=== PATIENT | female | born 1965 | race Caucasian/White ===

== ENCOUNTER 2023-03-11 16:46 | Outpatient (CLI) | payer MEDICARE, MEDICAID | END 2023-03-11 23:59 | disposition critical access hospital (66) | LOC: EMS 16:46 | DX: R41.82 Altered mental status, unspecified (principal); R07.9 Chest pain, unspecified; R53.1 Weakness; E11.65 Type 2 diabetes mellitus with hyperglycemia; I10 Essential (primary) hypertension | CPT/HCPCS: A0425; A0427 ==

== ENCOUNTER 2023-03-11 17:00 | Emergency (ER) | payer MEDICARE, MEDICAID ==
[2023-03-11 17:36] LABS: BASOPHILS # (AUTO) 0.1 10^3/uL (0.0-0.1); BASOPHILS % (AUTO) 0.6 %; EOSINOPHILS # (AUTO) 0.2 10^3/uL (0.0-0.7); EOSINOPHILS % (AUTO) 2.3 %; HCT - HEMATOCRIT 40.4 % (37.0-47.0); HGB - HEMOGLOBIN 13.7 g/dL (12.0-16.0); LYMPHOCYTES # (AUTO) 2.1 10^3/uL (1.5-3.5); LYMPHOCYTES % (AUTO) 27.5 %; MEAN CORPUSCULAR HEMOGLOBIN 29.3 pg (27.0-31.0); MEAN CORPUSCULAR HGB CONC 33.9 g/dL (32.0-36.0); MEAN CORPUSCULAR VOLUME 86.5 fL (81.0-99.0); MEAN PLATELET VOLUME 10.5 fL (7.9-10.8); MONOCYTES # (AUTO) 0.5 10^3/uL (0.0-1.0); MONOCYTES % (AUTO) 6.5 %; NEUTROPHILS # (AUTO) 4.8 10^3/uL (1.5-6.6); NEUTROPHILS % (AUTO) 62.8 %; PLT - PLATELET COUNT 255 10^3/uL (130-450); RED BLOOD COUNT 4.67 10^6/uL (4.20-5.40); RED CELL DISTRIBUTION WIDTH 12.3 % (12.0-15.0); WHITE BLOOD COUNT 7.7 x10^3/uL (4.8-10.8)
[2023-03-11 17:56] LABS: ALBUMIN 3.6 g/dL (3.2-5.5); ALBUMIN/GLOBULIN RATIO 1.4 (1.0-2.2); BILIRUBIN,TOTAL 0.4 mg/dL (0.2-1.0); CALCIUM 8.9 mg/dL (8.5-10.3); CREATININE 0.7 mg/dL (0.6-1.3); POTASSIUM 3.8 mmol/L (3.5-4.5); TOTAL PROTEIN 6.2 g/dL (6.4-8.9)
[2023-03-11 17:57] LABS: VBG BASE EXCESS 1.2 mmol/L (-2 - +2); VBG HCO3 26.3 mmol/L (23-28); VBG PCO2 43.8 mmHg (41-51); VBG PH 7.397 (7.31-7.41); VBG PO2 30.4 mmHg (25-47); VBG TOTAL CO2 27.7 mmol/L (24-29)
[2023-03-11] MEDS ORDERED: SODIUM CHLORIDE 0.9% 1,000 ML IV STA (17:58)
--- NOTE | 2023-03-11 17:59 | ED Physician Documentation ---
History of Present Illness - Stated complaint Stated Complaint: AMS/CP - Chief complaint Chief Complaint: Cardiac - History obtained from History obtained from: Patient, EMS - History of Present Illness Timing: Today, Chronic Pain level max: 4 Pain level now: 0 - Additonal information Additional information: 57-year-old female presents to the emergency department stating she is not sure what happened today she remembers taking her garbage can outside because it is trash day tomorrow she felt lightheaded and dizzy like she "was not going to make it" and sounds like she may have had a syncopal event. She is unsure if she lost consciousness or not. EMS states she was confused initially, but that resolved on route. No history of seizure activity. She does use marijuana several times daily. She states that she is a newly diagnosed diabetic but "they are trying to figure out how to treat me". She also states that she is had intermittent chest pain for the past several weeks. Occasionally there is a heaviness in her chest, sometimes it is a stabbing. It moves around to different areas. Does not appear to be related to exertion, inspiration, movement. No calf swelling or tenderness. She does smoke cigarettes as well. She states she does not drink. Review of Systems Constitutional: denies: Fever, Chills Respiratory: denies: Cough GI: denies: Nausea, Vomiting, Diarrhea : denies: Dysuria Skin: denies: Rash Musculoskeletal: reports: Back pain (States that she has had intermittent left- sided back pain for several months. She is working with her doctor about this.). denies: Neck pain Neurologic: denies: Focal weakness, Numbness, Headache PD PAST MEDICAL HISTORY - Past Medical History Past Medical History: Yes Cardiovascular: Hypertension, Coronary artery disease Endocrine/Autoimmune: Type 2 diabetes - Past Surgical History Cardiovascular: Coronary stent (She believes her last cardiac stent was 2018 in [facility]) - Present Medications Home Medications: Ambulatory Orders Medication Instructions Recorded Confirmed Aspirin [[place] Aspirin] 81 mg PO DAILY 03/11/23 03/11/23 - Allergies Allergies/Adverse Reactions: Allergies Allergy/AdvReac Type Severity Reaction Status Date / Time glipizide Allergy Unknown Verified 03/11/23 17:11 morphine Allergy Unknown Verified 03/11/23 17:11 metformin [From Glucophage] AdvReac Unknown Verified 03/11/23 17:11 - Living Situation Living Arrangement: reports: At home - Social History Does the pt smoke?: Yes Does the pt drink ETOH?: Yes ETOH Use: Other (States occasional alcohol use) Does the pt have substance abuse?: Yes Substance Use and Type: Marijuana PD ED PE NORMAL - Vitals Vital signs reviewed: Yes - General General: Alert and oriented X 3, No acute distress - HEENT HEENT: Atraumatic, PERRL, EOMI, Moist mucous membranes, Pharynx benign - Neck Neck: Supple, no meningeal sign, No bony TTP - Cardiac Cardiac: RRR, Strong equal pulses - Respiratory Respiratory: No respiratory distress, Clear bilaterally - Abdomen Abdomen: Normal bowel sounds, Soft, Non tender, Non distended - Back Back: No spinal TTP - Derm Derm: Warm and dry - Extremities Extremities: No edema, No calf tenderness / cord - Neuro Neuro: Alert and oriented X 3, 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, No motor deficit, No sensory deficit, Normal speech Eye Opening: Spontaneous Motor: Obeys Commands Verbal: Oriented GCS Score: 15 - Psych Psych: Normal mood, Normal affect Results - Vitals Vitals: Vital Signs - 24 hr 03/11/23 03/11/23 03/11/23 17:01 19:20 21:11 Temperature 36.9 C Heart Rate 84 73 82 Respiratory 12 16 16 Rate Blood Pressure 172/80 H 136/76 H 154/83 H O2 Saturation 97 97 99 03/11/23 23:44 Temperature Heart Rate 82 Respiratory 16 Rate Blood Pressure 166/91 H O2 Saturation 100 Oxygen O2 Source Room air - EKG (time done) 1722 EKG releavant findings:: EKG personally interpreted by author of this note. Relevant findings are: Rate: Rate (enter#) (74) Rhythm: NSR [place]: Normal Intervals: Normal WI QRS: Normal Ischemia: Normal ST segments - Labs Labs: Laboratory Tests 03/11/23 03/11/23 03/11/23 17:32 17:32 17:32 WBC 7.7 RBC 4.67 Hgb 13.7 Hct 40.4 MCV 86.5 MCH 29.3 MCHC 33.9 RDW 12.3 Plt Count 255 MPV 10.5 Neut # (Auto) 4.8 Lymph # (Auto) 2.1 [place] # (Auto) 0.5 Eos # (Auto) 0.2 Baso # (Auto) 0.1 Absolute Nucleated RBC 0.00 Nucleated RBC % 0.0 VBG pH VBG pCO2 VBG pO2 VBG HCO3 VBG Total CO2 VBG O2 Saturation VBG Base Excess Sodium 135 Potassium 3.8 Chloride 105 Carbon Dioxide 26 Anion Gap 4.0 L BUN 10 Creatinine 0.7 Estimated GFR (MDRD) 87 L Glucose 407 H POC Whole Bld Glucose Calcium 8.9 Total Bilirubin 0.4 AST 14 ALT 9 L Alkaline Phosphatase 106 Troponin I High Sens 15.8 H* Total Protein 6.2 L Albumin 3.6 Globulin 2.6 Albumin/Globulin Ratio 1.4 Lipase 22 Serum Ketones SARS-CoV-2 (PCR) 03/11/23 03/11/23 03/11/23 17:52 17:52 20:01 WBC RBC Hgb Hct MCV MCH MCHC RDW Plt Count MPV Neut # (Auto) Lymph # (Auto) [place] # (Auto) Eos # (Auto) Baso # (Auto) Absolute Nucleated RBC Nucleated RBC % VBG pH 7.397 VBG pCO2 43.8 VBG pO2 30.4 VBG HCO3 26.3 VBG Total CO2 27.7 VBG O2 Saturation 71.0 VBG Base Excess 1.2 Sodium Potassium Chloride Carbon Dioxide Anion Gap BUN Creatinine Estimated GFR (MDRD) Glucose POC Whole Bld Glucose 292 H Calcium Total Bilirubin AST ALT Alkaline Phosphatase Troponin I High Sens Total Protein Albumin Globulin Albumin/Globulin Ratio Lipase Serum Ketones NEGATIVE SARS-CoV-2 (PCR) 03/11/23 03/11/23 20:35 21:38 WBC RBC Hgb Hct MCV MCH MCHC RDW Plt Count MPV Neut # (Auto) Lymph # (Auto) [place] # (Auto) Eos # (Auto) Baso # (Auto) Absolute Nucleated RBC Nucleated RBC % VBG pH VBG pCO2 VBG pO2 VBG HCO3 VBG Total CO2 VBG O2 Saturation VBG Base Excess Sodium Potassium Chloride Carbon Dioxide Anion Gap BUN Creatinine Estimated GFR (MDRD) Glucose POC Whole Bld Glucose Calcium Total Bilirubin AST ALT Alkaline Phosphatase Troponin I High Sens 58.4 H* Total Protein Albumin Globulin Albumin/Globulin Ratio Lipase Serum Ketones SARS-CoV-2 (PCR) NOT DETECTED - Rads (name of study) Head CT Relevant Findings:: Final report received, See rad report cxr Relevant Findings:: Final report received, See rad report PD Medical Decision Making - ED course Complexity details: reviewed results, re-evaluated patient, considered differential, d/w patient ED course: 57-year-old female with what appears to be a likely syncopal event today at home. Had chest pain as well. No significant findings on head CT, chest x-ray or laboratory testing. Repeat troponin elevated significantly from the initial troponin given her longstanding cardiac history, diagnosis of diabetes that is poorly controlled, tobacco use, we will treat this as an NSTEMI. Given Lovenox here. There are no beds available at [facility] in [facility] in [place], [facility], [facility], [facility]. We will continue to look for a bed tonight, until then the patient will be kept in the emergency department and treated as an NSTEMI. Patient is signed out to the [facility] emergency department physician for further care. This document was made in part using voice recognition software. While efforts are made to proofread this document, sound alike and grammatical errors may occur. Patient is chest pain-free currently. No calf edema. No leg swelling. No recent travel. No history of blood clots. No pleuritic chest pain. Departure - Departure Disposition: 02 Transfer Acute Care Hosp Clinical Impression: NSTEMI (non-ST elevated myocardial infarction) Condition: Stable Forms: PCP List
--- NOTE | 2023-03-11 18:22 | XRAY Report ---
PROCEDURE: Chest 1 View X-Ray INDICATIONS: Chest pain TECHNIQUE: One view of the chest was acquired. COMPARISON: None. FINDINGS: Surgical changes and devices: None. Lungs and pleura: No pleural effusions or pneumothorax. Lungs are clear. Mediastinum: Mediastinal contours appear normal. Heart size is normal. Bones and chest wall: No suspicious bony lesions. Overlying soft tissues appear unremarkable. IMPRESSION: Portable chest within normal limits for age. Reviewed by: Dariel Soto MD on 03/11/2023 5:20 PM AKDT Approved by: Dariel Soto MD on 03/11/2023 5:20 PM AKDT Station ID: [id number]
--- NOTE | 2023-03-11 18:30 | CT Report ---
PROCEDURE: HEAD WO INDICATIONS: head injury, ALOC TECHNIQUE: Noncontrast 4.5 mm thick angled axial sections acquired from the foramen magnum to the vertex. For r adiation dose reduction, the following was used: automated exposure control, adjustment of mA and/or kV according to patient size. COMPARISON: None. FINDINGS: Image quality: Excellent. CSF spaces: Basal cisterns are patent. No extra-axial fluid collections. Ventricles are normal in size and shape. Brain: No midline shift. No intracranial masses or hemorrhage. Cintron-white matter interface is norm al. Skull and face: Calvarium and visualized facial bones are intact, without suspicious lesions. Sinuses: There are mucous retention cysts are seen in maxillary sinuses bilaterally. The mastoids are clear. IMPRESSION: 1. No acute intracranial abnormalities. 2. Bilateral maxillary sinus mucus retention cysts or polyps. Reviewed by: Mirela Nolasco MD on 03/11/2023 6:29 PM PDT Approved by: Mirela Nolasco MD on 03/11/2023 6:29 PM PDT Station ID: [id number]
[2023-03-11] MEDS ORDERED: INSULIN REGULAR HUMAN 300 UNIT/3 ML VIAL SUBQ STA (20:21)
[2023-03-11] MEDS ORDERED: ENOXAPARIN 80 MG/0.8 ML SYRINGE SUBQ STA (21:37)
[2023-03-12] MEDS ORDERED: SODIUM CHLORIDE 0.9% 1,000 ML IV STA (08:21)
--- NOTE | 2023-03-12 08:25 | ED Physician Documentation ---
ED Addendum - Addendum Addendum: 03/12/23 08:21 57-year-old Marci Mancini is a type II diabetic who has not had control for more than 2 years. She reports that yesterday she was attempting to take the garbage out when she was unable to move and developed chest pain. She was even having a hard time calling 911. She has been evaluated in the emergency department her diabetes is out of control she has been given a liter of fluid and she has been diagnosed with an NSTEMI. This morning she is in the emergency department awaiting a bed. I examined the patient I find her to be dehydrated on physical examination and I have confirmed this with POCUS and interrogation of the inferior vena cava. Today she has a vessel of 0.79 cm which collapses completely with respiration indicating a deficit of more than 2 L. She is administered further saline and we will work on controlling her diabetes. 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 We have administered IV insulin and sugar has come down to the 200 range. We will continue to work on control of the diabetes. She develops uncomfortable back pain related to the cot in the ED. She is administered IV toradal for this. At shift change her care is turned over to Dr. Wilkerson anticipating a bed becoming available tonight or by AM. 03/12/23 19:01
[2023-03-12 09:02] LABS: CALCIUM 9.3 mg/dL (8.5-10.3); CREATININE 0.7 mg/dL (0.6-1.3); POTASSIUM 4.1 mmol/L (3.5-4.5)
[2023-03-12] MEDS ORDERED: INSULIN REGULAR HUMAN 300 UNIT/3 ML VIAL IVP STA ×3 (09:44→17:59)
[2023-03-12 09:48] LABS: ESTIMATED AVERAGE GLUCOSE 306 mg/dL (70-100); HEMOGLOBIN A1c% 12.3 % (4.27-6.07)
[2023-03-12] MEDS ORDERED: KETOROLAC 30 MG/ML VIAL IVP STA (18:20)
[2023-03-13] MEDS ORDERED: KETOROLAC 15 MG/ML VIAL IVP STA (07:39)
[2023-03-13] MEDS ORDERED: ACETAMINOPHEN 325 MG TABLET PO STA (07:39)
[2023-03-13] MEDS ORDERED: ENOXAPARIN 80 MG/0.8 ML SYRINGE SUBQ SCH (11:00)
--- NOTE | 2023-03-13 12:10 | ED Physician Documentation ---
ED Addendum - Addendum Addendum: 03/13/23 12:07 The patient has been stable this morning. No chest pains. I noticed she had not gotten repeat doses of Lovenox so ordered some for this morning. Her blood sugar was a bit elevated in the 200s and will give a dose of her medication. [facility] had excepted the patient earlier this morning before change of shift. They did not have any beds available immediately. They now do and have approved transfer. EMTALA forms are filled out. The patient will be transfe rred by ground ALS. The patient has been stable this morning. No chest pains. I noticed she had not gotten repeat doses of Lovenox so ordered some for this morning. Her blood sugar was a bit elevated in the 200s and will give a dose of her medication. [facility] Thomas had excepted the patient earlier this morning before change of shift. They did not have any beds available immediately. They now do and have approved transfer. EMTALA forms are filled out. The patient will be transferred by ground ALS. Disposition: The patient is transferred to acute care facility in stable condition. Disposition diagnoses: 1. Chest pain episode 2. Elevated troponin 3. Non-STEMI
[2023-03-13] MEDS ORDERED: INSULIN REGULAR HUMAN 300 UNIT/3 ML VIAL SUBQ STA (12:28)
[2023-03-13 14:00] VITALS: BP 159/101
== END 2023-03-13 14:07 | disposition short-term general hospital (02) ==
LOC: EDUNIT# → ED 17:00
DX: I21.4 Non-ST elevation (NSTEMI) myocardial infarction (principal); R77.8 Other specified abnormalities of plasma proteins; I10 Essential (primary) hypertension; I25.10 Atherosclerotic heart disease of native coronary artery without angina pectoris; E11.65 Type 2 diabetes mellitus with hyperglycemia; F17.210 Nicotine dependence, cigarettes, uncomplicated; Z20.822 Contact with and (suspected) exposure to COVID-19
CPT/HCPCS: 36415; 70450; 71045; 80048; 80053; 82009; 82803; 83036; 83690; 84484; 85025; 87635; 93005; 96372; 96374; 96376; 99285; A9270; J1650; J1815

== ENCOUNTER 2023-04-24 10:23 | Outpatient (CLI) | payer OTHER ==
--- NOTE | 2023-04-25 11:33 | Ultrasound Report ---
LIMITED ULTRASOUND OF LEFT BREAST: 04/24/2023 CLINICAL: Focal left breast pain. Comparison is made to exams dated: 04/24/2023 mammogram, 03/21/2012 mammogram, and 05/10/2010 mammogram - [facility]. Real-time ultrasound of the left breast 4 o'clock region was performed. Cintron scale images of the re al-time examination were reviewed. No significant abnormalities were seen sonographically in the left breast. IMPRESSION: NEGATIVE There is no sonographic evidence of malignancy. There is no abnormality seen in the left breast to correspond with the area of clinical concern and p ain at 4 o'clock, however, recommend clinical follow up for persistent or worsening symptoms, or deve lopment of any clinically suspicious findings. A 1 year screening mammogram is recommended. Findings and recommendations were conveyed to the patient during today's evaluation. This exam was interpreted at Station ID: [id number]. Electronically Signed By: Krzysztof Briseno M.D. aty/:04/24/2023 12:29:35 Ultrasound BI-RADS: 1 Negative BI-RADS CATEGORY: (1) - 1 Mammogram [id number] 1 year screening LATERALITY: (B)
--- NOTE | 2023-04-25 11:33 | Mammography Report ---
BILATERAL DIGITAL DIAGNOSTIC MAMMOGRAM 3D/2D: 04/24/2023 CLINICAL: Focal left breast pain. Due for bilateral imaging. Comparison is made to exams dated: 03/21/2012 mammogram and 05/10/2010 mammogram - [facility]. There are scattered areas of fibroglandular density in both breasts (category b / 25%-50% glandular t issue). No significant masses, calcifications, or other findings are seen in either breast. IMPRESSION: INCOMPLETE: NEEDS ADDITIONAL IMAGING EVALUATION There is no abnormality seen in the left breast to correspond with the area of clinical concern and p ain indicated by square markers at 3 o'clock, however, an ultrasound is recommended for further evalu ation and is scheduled to immediately follow this examination. Based on the Tyrer Cuzick model (a risk assessment model) the patients lifetime risk is 10.0% and he r 10 year risk is 3.1%. According to the ACR, ACS, and NCCN guidelines, an annual breast MRI exam shraddha ng with mammogram is recommended if the patients lifetime risk is 20% or greater. This exam was interpreted at Station ID: [id number]. NOTE: For mammograms, a report in lay terms will be sent to the patient. Approximately 15% of breast malignancies will not be visualized mammographically. In the management of a palpable breast mass, a negative mammogram must not discourage biopsy of a clinically suspicious lesion. Electronically Signed By: Krzysztof Briseno M.D. aty/:04/24/2023 12:28:03 ACR BI-RADS Category 0: Incomplete 3340F PARENCHYMAL PATTERN: (A) - The breast(s) demonstrate(s) scattered fibroglandular densities. BI-RADS CATEGORY: (0) - 0 Ultrasound [id number] Immediate follow-up LATERALITY: (L)
== END 2023-04-24 10:24 | disposition home or self-care (01) ==
LOC: DI 10:23
PROVIDERS: ATTEND Family Medicine
DX: N64.4 Mastodynia (principal)

== ENCOUNTER 2023-07-09 14:22 | Outpatient (CLI) | payer OTHER ==
--- NOTE | 2023-07-09 16:03 | MRI Report ---
PROCEDURE: LUMBAR SPINE WO INDICATIONS: SUDDEN RT FOOT FROP TECHNIQUE: Noncontrast sagittal T1 spin echo and T2 fast echo, sagittal STIR, axial T1 and T2 fast spin echo thr ough the lumbar spine. In cases with scoliosis, additional coronal T2 fast spin echo may be performe d. COMPARISON: None. FINDINGS: Image quality: Excellent. Alignment and Curvature: There is normal bony alignment. Bone Marrow: Marrow is of normal overall signal. No acute vertebral body compression fractures. Spinal Cord: Conus medullaris terminates at the L1-L2 level. Visualized cord demonstrates normal si gnal and size. Paraspinous Soft Tissues: No paravertebral masses. T12-L1: Normal in appearance. L1-L2: Normal in appearance. L2-L3: Mild facet hypertrophy. No canal stenosis or foraminal stenosis. L3-L4: Minimal disc bulge. Facet hypertrophy. Borderline canal stenosis. Mild bilateral foraminal s tenosis. L4-L5: Posterior annulus tear plus disc bulge. Facet hypertrophy. Mild canal stenosis. Mild bilater al foraminal stenosis. L5-S1: Disc bulge. Bilateral facet hypertrophy. No canal stenosis. Mild bilateral foraminal stenosi s. IMPRESSION: 1. There is multilevel underlying facet arthropathy. 2. There is annulus tear plus disc bulge at L4-L5. There is mild canal stenosis at this level. 3. Borderline canal stenosis at L3-L4. Reviewed by: Veto Hernández MD on 07/09/2023 4:02 PM PST Approved by: Veto Hernández MD on 07/09/2023 4:02 PM PST Station ID: [id number]
== END 2023-07-09 14:23 | disposition home or self-care (01) ==
LOC: DI 14:22
PROVIDERS: ATTEND Registered Nurse
DX: M21.371 Foot drop, right foot (principal); M47.816 Spondylosis without myelopathy or radiculopathy, lumbar region; M51.36 Other intervertebral disc degeneration, lumbar region; M48.061 Spinal stenosis, lumbar region without neurogenic claudication

== ENCOUNTER 2023-07-25 12:42 | Outpatient (CLI) | payer OTHER ==
--- NOTE | 2023-07-25 18:12 | MRI Report ---
PROCEDURE: MRI brain without contrast INDICATIONS: 57-year-old female with foot drop TECHNIQUE: Multiplanar multisequential MR images of the brain were obtained without contrast COMPARISON: CT brain 03/11/2023 FINDINGS: CSF Spaces: Basal cisterns are patent. No extra-axial fluid collections. Ventricles are normal in size and shape. Brain: No intracranial masses or hemorrhage. Cintron/white matter interface is normal. Brainstem appe ars normal. Diffusion-weighted images shows no evidence of acute infarct. Normal intravascular flow voids are present. Mild atrophy and white matter chronic ischemic change Skull and face: Calvarium has normal marrow signal. Orbits appear normal. Sinuses: Bilateral maxillary sinus retention cysts IMPRESSION: Unremarkable MRI of the brain Incidental maxillary sinus retention cysts. Reviewed by: Carlos Dong MD on 07/25/2023 5:10 PM AK Approved by: Carlos Dong MD on 07/25/2023 5:10 PM AK Station ID: [id number]
== END 2023-07-25 12:43 | disposition home or self-care (01) ==
LOC: DI 12:42
PROVIDERS: ATTEND Registered Nurse
DX: M21.371 Foot drop, right foot (principal); R20.2 Paresthesia of skin; R20.0 Anesthesia of skin

== ENCOUNTER 2023-12-04 08:15 | Outpatient (CLI) | payer OTHER ==
--- NOTE | 2023-12-04 11:12 | DEXA Report ---
PROCEDURE: Dexa Spine and/or Hip INDICATIONS: SCREENING FOR OSTEOPOROSIS TECHNIQUE: Dual energy x-ray absorptiometry (DXA) was performed on a [employer] System. Regions measur ed are the AP Spine, femoral neck, and if needed forearm. COMPARISON: None FINDINGS: Lumbar Spine: Bone Mineral Density: 1.181 g/cm/cm,T score: 0. Left Femoral Neck: Bone Mineral Density: 0.953 g/cm/cm, T score: -0.6. Left Hip: Bone Mineral Density: 1.017 g/cm/cm,T score: 0.1. (T score greater or equal to -1.0: NORMAL) (T score from -1.1 to -2.4: OSTEOPENIA) (T score less than or equal to -2.5 to: OSTEOPOROSIS) Impression: By WHO criteria, this patient has normal bone density. Patients with diagnosis of osteoporosis or osteopenia should have regular bone mineral density assess ment. For those eligible for Medicare, routine testing is allowed once every 2 years. Testing frequ ency can be increased for patients who have rapidly progressing disease or for those who are receivin g medical therapy to restore bone mass. Reviewed by: Sidney Rodriguez MD on 12/04/2023 11:11 AM PDT Approved by: Sidney Rodriguez MD on 12/04/2023 11:11 AM PDT Station ID: [id number]
== END 2023-12-04 08:16 | disposition home or self-care (01) ==
LOC: DI 08:15
PROVIDERS: ATTEND Registered Nurse
DX: Z13.820 Encounter for screening for osteoporosis (principal); Z78.0 Asymptomatic menopausal state; Z87.891 Personal history of nicotine dependence

== ENCOUNTER 2023-12-31 15:37 | Outpatient (CLI) | payer OTHER | END 2023-12-31 23:59 | disposition short-term general hospital (02) | LOC: EMS 15:37 | DX: R07.89 Other chest pain (principal); R10.9 Unspecified abdominal pain; R11.0 Nausea; R19.8 Other specified symptoms and signs involving the digestive system and abdomen | CPT/HCPCS: A0425; A0427 ==

== ENCOUNTER 2024-02-10 21:45 | Emergency (ER) | payer OTHER ==
[2024-02-10 21:55] VITALS: BP 136/63; O2SAT 100
--- NOTE | 2024-02-10 22:51 | XRAY Report ---
PROCEDURE: Knee 3V RT INDICATIONS: pain TECHNIQUE: 3 views of the knee(s) were acquired. COMPARISON: None. FINDINGS: Bones: Mild degenerative changes, with medial compartment joint space narrowing. No acute displaced f racture or dislocation. Soft tissues: No suspicious calcifications or significant joint effusion. IMPRESSION: Mild degenerative changes. No acute radiographic abnormality. If there is high concern for further de rangement, consider MRI evaluation. Reviewed by: Rubén Lynch MD on 02/10/2024 10:49 PM PDT Approved by: Rubén Lynch MD on 02/10/2024 10:49 PM PDT Station ID: [id number]
--- NOTE | 2024-02-10 23:33 | ED Physician Documentation ---
PD HPI LOWER EXT INJURY - Stated complaint Stated Complaint: R LEG PX - Chief complaint Chief Complaint: Ext Problem - History obtained from History obtained from: Patient - Additional information Additional information: Patient is a 58-year-old female with a history of coronary artery disease presenting for evaluation of right knee pain that has been present for over a month. Patient is on aspirin and Plavix. Denies any trauma to the knee. Had a stent placed at the end of December but access site was through the wrist. Denies any groin pain. No leg swelling. No history of DVT. No chest pain or shortness of air. No fever. Patient has seen her primary care for this and was prescribed lidocaine patches. She states it does not help. She has not tried other medications or treatments yet. 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 : None HEENT: None Psych: None Musculoskeletal: None Derm: None - Past Surgical History Past Surgical History: Yes Cardiovascular: Coronary stent - Present Medications Home Medications: Ambulatory Orders Medication Instructions Recorded Confirmed Aspirin [[place] Aspirin] 81 mg PO DAILY 03/11/23 02/10/24 Clopidogrel [Plavix] 75 mg PO ONCE 02/10/24 02/10/24 Dicyclomine HCl 20 mg PO BIDAC PRN MDD 4 doses 02/10/24 02/10/24 Empagliflozin [Jardiance] 10 mg PO DAILY 02/10/24 02/10/24 Ezetimibe [Zetia] 10 mg PO DAILY 02/10/24 02/10/24 Gabapentin [Neurontin] 100 mg PO HS 02/10/24 02/10/24 Insulin Glargine-Yfgn 2 units SUBQ QPM 02/10/24 02/10/24 Metoprolol Tartrate [Lopressor] 25 mg PO BID 02/10/24 02/10/24 Nicotine [Nicoderm Cq] 4 mg PO Q1HR PRN 02/10/24 02/10/24 Nitroglycerin [Nitrostat] 0.4 mg SL Q5MIN PRN MDD 3 02/10/24 02/10/24 Pantoprazole [Protonix] 40 mg PO DAILY 02/10/24 02/10/24 Rosuvastatin Calcium 40 mg PO DAILY 02/10/24 02/10/24 metFORMIN [Glucophage] 500 mg PO BIDWM 02/10/24 02/10/24 - Allergies Allergies/Adverse Reactions: Allergies Allergy/AdvReac Type Severity Reaction Status Date / Time empagliflozin Allergy Unknown Verified 02/10/24 21:55 glipizide Allergy Unknown Verified 02/10/24 21:54 morphine Allergy Unknown Verified 02/10/24 21:54 semaglutide Allergy Unknown Verified 02/10/24 21:55 metformin [From Glucophage] AdvReac Unknown Verified 02/10/24 21:54 - Social History Does the pt smoke?: No Smoking Status: Former smoker Does the pt drink ETOH?: Yes Does the pt have substance abuse?: Yes - Immunizations Immunizations are current?: Yes PD ED PE NORMAL - General General: Alert and oriented X 3, No acute distress, Well developed/nourished - HEENT HEENT: Atraumatic - Neck Neck: Supple, no meningeal sign - Cardiac Cardiac: RRR, Strong equal pulses - Respiratory Respiratory: No respiratory distress, Clear bilaterally - Derm Derm: Warm and dry - Extremities Extremities: No deformity, Other (Right knee pain on range of motion, no visible swelling or deformity, no erythema, no warmth to the joint, no calf tenderness or swelling, distal pulses intact, compartments of extremity are soft) Results - Vitals Vitals: Vital Signs - 24 hr 02/10/24 21:49 Temperature 36.7 C Heart Rate 76 Respiratory 16 Rate Blood Pressure 136/63 H O2 Saturation 100 Oxygen O2 Source Room air PD Medical Decision Making - ED course ED course: Patient is a 58-year-old female presenting for evaluation of right knee pain.Really intact. No signs of infection. X-ray which I reviewed is negative for fracture or dislocation. Ultrasound was obtained given recent hospitalization which is negative for DVT. Symptoms have been ongoing for a month. Patient encouraged to have close follow-up with primary care. Departure - Departure Disposition: 01 Home, Self Care Clinical Impression: Right knee pain Condition: Stable Instructions: ED Knee Pain UKO Comments: Your ultrasound does not show signs of a blood clot in the leg and your x-ray does not show a broken bone. I would recommend close follow-up with your primary care provider given the duration of your symptoms as you may need more testing or treatment such as physical therapy or an MRI. Return to the ER with any worsening symptoms. Forms: PCP List Discharge Date/Time: 02/10/24 23:38
--- NOTE | 2024-02-11 08:20 | Ultrasound Report ---
PROCEDURE: Duplex Ext Veins Right INDICATIONS: swelling/pain TECHNIQUE: Real-time imaging, as well as color and pulse Doppler interrogation, were performed of the lower extr emity deep veins from the inguinal ligament to the popliteal fossa. Attempted visualization of the ca lf veins was performed. COMPARISON: None. FINDINGS: The deep veins are normally compressible, and free of intraluminal thrombus. Color and pu lse Doppler demonstrate normal phasic intraluminal flow. There is normal augmentation response to di stal compression maneuver. Small knee joint effusion. IMPRESSION: No deep venous thrombosis of the visualized lower extremity. Agree with preliminary interpretation provided to the ordering provider by the ultrasound technologis t. Reviewed by: Gualberto Ornelas MD on 02/11/2024 8:19 AM PDT Approved by: Gualberto Ornelas MD on 02/11/2024 8:19 AM PDT Station ID: [id number]
== END 2024-02-10 23:38 | disposition home or self-care (01) ==
LOC: ED 21:45
DX: M25.561 Pain in right knee (principal); Z87.891 Personal history of nicotine dependence
CPT/HCPCS: 99283; 99284

== ENCOUNTER 2024-03-13 13:22 | Outpatient (CLI) | payer OTHER | END 2024-03-13 13:23 | disposition home or self-care (01) | LOC: DI 13:22 | PROVIDERS: ATTEND Registered Nurse | DX: Z53.9 Procedure and treatment not carried out, unspecified reason (principal) ==

== ENCOUNTER 2024-03-26 13:22 | Outpatient (CLI) | payer OTHER ==
--- NOTE | 2024-03-27 09:11 | Mammography Report ---
BILATERAL DIGITAL DIAGNOSTIC MAMMOGRAM 3D/2D: 03/26/2024 CLINICAL: Focal left breast pain. Comparison is made to exams dated: 04/24/2023 mammogram and 03/21/2012 mammogram - [facility]. There are scattered areas of fibroglandular density in both breasts (category b / 25%-50% glandular t issue). No significant masses, calcifications, or other findings are seen in either breast. IMPRESSION: INCOMPLETE: NEEDS ADDITIONAL IMAGING EVALUATION There is no abnormality seen in the left breast to correspond with the pain, however, ultrasound is r ecommended. Based on the Tyrer Cuzick model (a risk assessment model) the patient's lifetime risk is 7.8% and her 10 year risk is 2.5%. According to the ACR, ACS, and NCCN guidelines, an annual breast MRI exam rupal g with mammogram is recommended if the patient's lifetime risk is 20% or greater. This exam was interpreted at Station ID: [id number]. NOTE: For mammograms, a report in lay terms will be sent to the patient. Approximately 15% of breast malignancies will not be visualized mammographically. In the management of a palpable breast mass, a negative mammogram must not discourage biopsy of a clinically suspicious lesion. Electronically Signed By: Bladimir munoz/julia:03/26/2024 15:47:31 ACR BI-RADS Category 0: Incomplete 3340F PARENCHYMAL PATTERN: (A) - The breast(s) demonstrate(s) scattered fibroglandular densities. BI-RADS CATEGORY: (0) - 0 Ultrasound [id number] Immediate follow-up LATERALITY: (L)
--- NOTE | 2024-03-27 09:11 | Ultrasound Report ---
LIMITED ULTRASOUND OF LEFT BREAST: 03/26/2024 CLINICAL: Intermittent pain in left breast. Comparison is made to exams dated: 03/26/2024 mammogram, 04/24/2023 ultrasound, 04/24/2023 mammogram, a nd 03/21/2012 mammogram - [facility]. Color flow and real-time ultrasound of the left breast 4 o'clock region were performed. Cintron scale images of the real-time examination were reviewed. No significant abnormalities were seen sonographically in the left breast. IMPRESSION: NEGATIVE There is no sonographic evidence of malignancy. There is no abnormality seen in the left breast to correspond with the pain, however, clinical follow up is recommended. A 1 year screening mammogram is recommended. This exam was interpreted at Station ID: [id number]. Electronically Signed By: Bladimir munoz/julia:03/26/2024 15:48:01 letter sent: No_Letter Ultrasound BI-RADS: 1 Negative BI-RADS CATEGORY: (1) - 1 RECOMMENDATION: (ANNUAL) - Recommend routine annual screening mammography. [id number] 1 year screening LATERALITY: (B)
== END 2024-03-26 13:23 | disposition home or self-care (01) ==
LOC: DI 13:22
PROVIDERS: ATTEND Registered Nurse
DX: N64.4 Mastodynia (principal); R92.323 Mammographic fibroglandular density, bilateral breasts